=== PATIENT | male | born 1965 | race African-American/Black ===

== ENCOUNTER 2024-05-11 23:36 | Emergency (ER) | payer OTHER ==
[2024-05-12 00:52] LABS: Influenza A by NAA Not Detected (NotDetected); Influenza B by NAA Not Detected (NotDetected); SARS-CoV-2 NAA Rapid Test Not Detected (NotDetected)
== END 2024-05-12 00:59 | disposition home or self-care (01) ==
LOC: CSHERS 23:36
DX: J06.9 Acute upper respiratory infection, unspecified (principal); Z55.6 Problems related to health literacy
CPT/HCPCS: 99283